=== PATIENT | female | born 2005 | race Hispanic/Latino ===

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

== ENCOUNTER 2025-04-06 08:06 | Emergency (ER) | payer SELFPAY ==
--- OUTSIDE RECORDS SUMMARY | 2025-04-06 08:14 | XMS REPORT | Continuity of Care Document ---
Author Name Unknown Address [address] [facility] [address] [place] [address] [facility] Address [address] [facility] [address] [place] [address] Care Team Providers Care Museum Technician Name Role Phone Cinthia Castaneda PA-C Primary Care Physician + Cindy Bourne NP Attending Clinician + [phone] CINDY BOURNE Attending Clinician Unavaila ble Lab, Ang - Db Attending Clinician Unavailable GREGORY GOODMAN Attending Clinician Unavailable Maggie Denise Attending Clinician [phone] Unknown, Attending Attending Clinician Unavailab MAGGIE Dai Attending Clinician Unavailable Doctor Unassigned, Colver Attending Clinician U CINTHIA Malik Attending Clinician Unavailab Rita Fink RN Attending Clinician UnavailPAULA Edgar Attending Clinician Paula Charlton Attending Clinician [phone] Gregory Goodman MD Attending Clinician [phone] Cinthia Castaneda PA-C Attending Clinician [phone] Only, Ang Db Test Attending Clinician UnavailMarguerite Matthew PA-C Attending Clinician [phone] MARGUERITE PHILLIPS Attending Clinician Unavailable Sonal Wilkerson Attending Clinician [phone] SONAL TANG Attending Clinician Unavailanita Jacobs RN, Madeleine Dodge Attending Clinician Unavailab alyssa Scott MD, Ashley Attending Clinician [phone] ASHLEY SCOTT Attending Clinician Unavailable Nurse, [facility] Attending Clinician Unavailable Nurse, Terry Sorenson Attending Clinician Unavailable Kowalski PRE PRESS PROOFER, Lisa Attending Clinician + [phone] Pob, Ad[facility] Lab Main Attending Clinician Unavailanita tarango Lab, Terry Sorenson Attending Clinician Unavailable Fred HUANG, Enio Attending Clinician [phone] Provider, [facility] Attending Clinician Un available Pily Smith Attending Clinician [phone] PILY LEON Attending Clinician Unavailable Lab, Adc Fam Pob I Attending Clinician Unavailab alyssa DAVIS, Erika Attending Clinician [phone] ERIKA SEAY Attending Clinician Unavailable ANETA PEREZ Attending Clinician Unavail able ENIO ROPER Attending Clinician Unavailable Aneta Perez MD Attending Clinician [phone] Payers Payer Name Policy Type Policy Number Effective Date Expirati on Date Source [facility] [id number] 2017 00:00:00 Problems Condition Name Condition Details Condition Category Status Onset Date Resolution Date Last Treatment Date Treating Clinician Comments Source BMI 26.0-26.9, adult BMI 26.0-26.9, adult Disease Active 5-02 00:00: 00 [facility] Vaginal discharge Vaginal discharge Disease Active 2-10 00:00: 00 [facility] Well woman exam Well woman exam Disease Active 6-08 00:00: 00 [facility] Allergies, Adverse Reactions, Alerts Allergy Name Allergy Type Status Severity Reaction(s) Onset Date Inactive Date Treating Clinician Comments Source LATEX DRUG INGREDI Active Hives 2018-07 00:00: 00 [facility] Latex Propensi ty to adverse reaction s Active Hives 2018-07 00:00: 00 [facility] SULFAMET HOXAZOLE DRUG INGREDI Active Swelling 220 00:00: 00 [facility] TRIMETHO PRIM DRUG INGREDI Active Swelling 2-20 00:00: 00 [facility] Sulfamet hoxazole Propensi ty to adverse reaction s Active Swelling 08-24 00:00: 00 [facility] Trimetho prim Propensi ty to adverse reaction s Active Swelling 08-24 00:00: 00 [facility] Social History Social Habit Start Date Stop Date Quantity Comments Source History SDOH Alcohol Comment [place] [facility] SARS-CoV[facility]2 (event) 2022-10-24 00:00:00 2022-11-03 09:03:00 Not sure [facility] History of Social function 2022-11-03 00:00:00 2022-11-03 00:00:00 [facility] Alcohol intake 2022-08-14 00:00:00 2022-08-14 00:00:00 Lifetime non-drinker (finding) [facility] Tobacco use and exposure 2022-05-19 00:00:00 2022-05-19 00:00:00 Smokeless tobacco non-user [facility] History SDOH Alcohol Frequency 2020-03-13 00:00:00 2020-03-13 00:00:00 1 [facility] History SDOH Alcohol Std Drinks 2020-03-13 00:00:00 2020-03-13 00:00:00 99 [facility] History SDOH Alcohol Binge 2020-03-13 00:00:00 2020-03-13 00:00:00 1 [facility] Sex Assigned At 2003 00:00:00 2003 00:00:00 [facility] Smoking Status Start Date Stop Date Source Never smoked tobacco [facility] Medications Ordered Medication Name Filled Medication Name Start Date Stop Date Current Medication? Ordering Clinician Indication Dosage Frequency Signature (SIG) Comments Components Source metroNIDAZO LE 500 mg tablet 03-29 00:00: 00 04-06 04:59 :00 No [id number] 500mg Take 1 tablet by mouth every 12 (twelve) hours for [address] [facility] metroNIDAZO LE (NUVESSA) 1.3 % (65 mg/5 gram) Gel 03-25 00:00: 00 03-26 04:59 :00 No [id number] 65mg Insert 65 mg into vagina once now for [address] [facility] ketoconazol e 2 % cream 09-25 00:00: 00 Yes [id number] Apply to area(s) daily. [facility] cephALEXin (KEFLEX) 500 mg capsule 09-25 00:00: 00 10-06 04:59 :00 No [id number] 500mg Take 1 capsule by mouth 4 (four) times daily for [address] [facility] fluconazole (DIFLUCAN) 150 mg tablet 09-25 00:00: 00 09-30 04:59 :00 No [id number] 150mg Take 1 tablet by mouth every 72 (seventy-t wo) hours for [address] [facility] metroNIDAZO LE 500 mg tablet 08-20 00:00: 00 08-28 05:59 :00 No [id number] 500mg Take 1 tablet by mouth every 12 (twelve) hours for [address] [facility] terconazole 80 mg vaginal suppository 08-20 00:00: 00 08-24 05:59 :00 No [id number] 80mg Insert 1 Suppositor y into vagina at bedtime for [address] [facility] ibuprofen (ADVIL ORAL) 08-14 09:20: 09 Yes Take by mouth. [facility] calcium carbonate-v itamin D3 1,000 mg(2,500 mg)-800 unit Tab 08-14 09:20: 09 Yes Take by mouth. [facility] metroNIDAZO LE 500 mg tablet 08-14 00:00: 00 08-22 05:59 :00 No [id number] 500mg Take 1 tablet by mouth every 12 (twelve) hours for [address] [facility] terconazole 80 mg vaginal suppository 2021-07 00:00: 00 07-05 05:59 :00 No [id number] 80mg Insert 1 Suppositor y into vagina at bedtime for [address] [facility] metroNIDAZO LE 500 mg tablet 2021-07 00:00: 00 07-08 05:59 :00 No [id number] 500mg Take 1 tablet by mouth every 12 (twelve) hours for [address] [facility] ibuprofen (ADVIL ORAL) 2021-07 20:22: 49 Yes Take by mouth. [facility] calcium carbonate-v itamin D3 1,000 mg(2,500 mg)-800 unit Tab 2021-07 20:22: 49 Yes Take by mouth. [facility] bacitracin- polymyxin B 500-10,000 unit/gram topical ointment 2021-07 00:00: 00 06-03 05:59 :00 No [id number] Apply to area(s) 2 (two) times daily for [address] [facility] calcium carbonate-v itamin D3 1,000 mg(2,500 mg)-800 unit Tab 10-30 15:24: 20 Yes Take by mouth. [facility] loratadine (ALLERGY RELIEF, LORATADINE, ) 10 mg dissolvable tablet 10-03 00:00: 00 Yes [id number] 10mg Take 1 tablet by mouth daily. [facility] mometasone 50 mcg/actuati on nasal spray 10-03 00:00: 00 Yes [id number] USE 2 sprays ea nostril BID [facility] FLUoxetine 20 mg tablet 02-28 00:00: 00 Yes [id number] 20mg Take 1 tablet by mouth daily. [facility] FLUoxetine 20 mg tablet 01-27 00:00: 00 02-28 00:00 :00 No [id number] 20mg Take 1 tablet by mouth daily. [facility] azithromyci n 500 mg tablet 6-09 00:00: 00 02-28 00:00 :00 No TAKE 2 TABLETS BY MOUTH 1 TIME NOW FOR [address] [facility] cyproheptad ine 4 mg tablet 6-02 00:00: 00 02-28 00:00 :00 No [id number] Take 1 po bid for increased appetite [facility] mupirocin 2 % ointment 5-16 00:00: 00 02-28 00:00 :00 No [id number] Apply to area(s) 3 (three) times daily. [facility] ibuprofen (ADVIL ORAL) 04-02 09:55: 32 Yes Take by mouth. [facility] ferrous sulfate (IRON, FERROUS SULFATE,) 325 mg (65 mg iron) tablet 2018-07 00:00: 00 Yes [id number] 325mg Take 1 tablet by mouth 3 (three) times daily with meals. [facility] fluticasone 50 mcg/actuati on nasal spray 11-11 00:00: 00 02-28 00:00 :00 No [id number] 2{spray } Use 2 Sprays in each nostril daily. [facility] Immunizations Ordered Immunization Name Filled Immunization Name Date Status Comments Source TDAP (ADACEL) VACCINE 2023-03-29 00:00:00 Completed [facility] DTAP 2023-03-29 00:00:00 Completed [facility] HIB 4 Dose Schedule 2023-03-29 00:00:00 Completed [facility] HEPATITIS A 2023-03-29 00:00:00 Completed [facility] Hep B, Adol or Pedi Dosage 2023-03-29 00:00:00 Completed [facility] HPV 2023-03-29 00:00:00 Completed [facility] Influenza Virus Vaccine 2023-03-29 00:00:00 Completed [facility] Meningococcal Polysaccharide (groups A, C, Y and W-135) conjugate vaccine (MCV4P) 2023-03-29 00:00:00 Completed [facility] MMR 2023-03-29 00:00:00 Completed [facility] Polio (IPV/OPV) 2023-03-29 00:00:00 Completed [facility] Varicella (varivax)(chicken pox) 2023-03-29 00:00:00 Completed [facility] Pneumococcal 7 Conjugate, PCV7 (Prevnar7) 2023-03-29 00:00:00 Completed [facility] Influenza Virus Vaccine Quad .5 mL IM 6+ MO (FLUZONE/FLULAVAL/FLU ARIX) 2023-03-29 00:00:00 Completed [facility] Meningococcal B, OMV 2023-03-29 00:00:00 Completed [facility] DTaP, Unspecified Formulation 2023-03-29 00:00:00 Completed [facility] Flu Trivalent 2023-03-29 00:00:00 Completed [facility] Influenza Virus Vaccine - Whole 2023-03-29 00:00:00 Completed [facility] IPV 2023-03-29 00:00:00 Completed [facility] TDAP (ADACEL) VACCINE 2023-03-26 00:00:00 Completed [facility] DTAP 2023-03-26 00:00:00 Completed [facility] HIB 4 Dose Schedule 2023-03-26 00:00:00 Completed [facility] HEPATITIS A 2023-03-26 00:00:00 Completed [facility] Hep B, Adol or Pedi Dosage 2023-03-26 00:00:00 Completed [facility] HPV 2023-03-26 00:00:00 Completed [facility] Influenza Virus Vaccine 2023-03-26 00:00:00 Completed [facility] Meningococcal Polysaccharide (groups A, C, Y and W-135) conjugate vaccine (MCV4P) 2023-03-26 00:00:00 Completed [facility] MMR 2023-03-26 00:00:00 Completed [facility] Polio (IPV/OPV) 2023-03-26 00:00:00 Completed [facility] Varicella (varivax)(chicken pox) 2023-03-26 00:00:00 Completed [facility] Pneumococcal 7 Conjugate, PCV7 (Prevnar7) 2023-03-26 00:00:00 Completed [facility] Influenza Virus Vaccine Quad .5 mL IM 6+ MO (FLUZONE/FLULAVAL/FLU ARIX) 2023-03-26 00:00:00 Completed [facility] Meningococcal B, OMV 2023-03-26 00:00:00 Completed [facility] DTaP, Unspecified Formulation 2023-03-26 00:00:00 Completed [facility] Flu Trivalent 2023-03-26 00:00:00 Completed [facility] Influenza Virus Vaccine - Whole 2023-03-26 00:00:00 Completed [facility] IPV 2023-03-26 00:00:00 Completed [facility] TDAP (ADACEL) VACCINE 2023-03-25 09:00:00 Completed [facility] DTAP 2023-03-25 09:00:00 Completed [facility] HIB 4 Dose Schedule 2023-03-25 09:00:00 Completed [facility] HEPATITIS A 2023-03-25 09:00:00 Completed [facility] Hep B, Adol or Pedi Dosage 2023-03-25 09:00:00 Completed [facility] HPV 2023-03-25 09:00:00 Completed [facility] Influenza Virus Vaccine 2023-03-25 09:00:00 Completed [facility] Meningococcal Polysaccharide (groups A, C, Y and W-135) conjugate vaccine (MCV4P) 2023-03-25 09:00:00 Completed [facility] MMR 2023-03-25 09:00:00 Completed [facility] Polio (IPV/OPV) 2023-03-25 09:00:00 Completed [facility] Varicella (varivax)(chicken pox) 2023-03-25 09:00:00 Completed [facility] Pneumococcal 7 Conjugate, PCV7 (Prevnar7) 2023-03-25 09:00:00 Completed [facility] Influenza Virus Vaccine Quad .5 mL IM 6+ MO (FLUZONE/FLULAVAL/FLU ARIX) 2023-03-25 09:00:00 Completed [facility] Meningococcal B, OMV 2023-03-25 09:00:00 Completed [facility] DTaP, Unspecified Formulation 2023-03-25 09:00:00 Completed [facility] Flu Trivalent 2023-03-25 09:00:00 Completed [facility] Influenza Virus Vaccine - Whole 2023-03-25 09:00:00 Completed [facility] IPV 2023-03-25 09:00:00 Completed [facility] TDAP (ADACEL) VACCINE 2022-09-17 00:00:00 Completed [facility] DTAP 2022-09-17 00:00:00 Completed [facility] HIB 4 Dose Schedule 2022-09-17 00:00:00 Completed [facility] HEPATITIS A 2022-09-17 00:00:00 Completed [facility] Hep B, Adol or Pedi Dosage 2022-09-17 00:00:00 Completed [facility] HPV 2022-09-17 00:00:00 Completed [facility] Influenza Virus Vaccine 2022-09-17 00:00:00 Completed [facility] Meningococcal Polysaccharide (groups A, C, Y and W-135) conjugate vaccine (MCV4P) 2022-09-17 00:00:00 Completed [facility] MMR 2022-09-17 00:00:00 Completed [facility] Polio (IPV/OPV) 2022-09-17 00:00:00 Completed [facility] Varicella (varivax)(chicken pox) 2022-09-17 00:00:00 Completed [facility] Pneumococcal 7 Conjugate, PCV7 (Prevnar7) 2022-09-17 00:00:00 Completed [facility] Influenza Virus Vaccine Quad .5 mL IM 6+ MO (FLUZONE/FLULAVAL/FLU ARIX) 2022-09-17 00:00:00 Completed [facility] Meningococcal B, OMV 2022-09-17 00:00:00 Completed [facility] DTaP, Unspecified Formulation 2022-09-17 00:00:00 Completed [facility] Flu Trivalent 2022-09-17 00:00:00 Completed [facility] Influenza Virus Vaccine - Whole 2022-09-17 00:00:00 Completed [facility] IPV 2022-09-17 00:00:00 Completed [facility] Meningococcal Polysaccharide (groups A, C, Y and W-135) conjugate vaccine (MCV4P) 2020-02-16 00:00:00 Completed [facility] Meningococcal B, OMV 2020-02-16 00:00:00 Completed [facility] Meningococcal Polysaccharide (groups A, C, Y and W-135) conjugate vaccine (MCV4P) 2020-02-16 00:00:00 Completed [facility] Meningococcal B, OMV 2020-02-16 00:00:00 Completed [facility] Meningococcal Polysaccharide (groups A, C, Y and W-135) conjugate vaccine (MCV4P) 2020-02-16 00:00:00 Completed [facility] Meningococcal B, OMV 2020-02-16 00:00:00 Completed [facility] Meningococcal Polysaccharide (groups A, C, Y and W-135) conjugate vaccine (MCV4P) 2020-02-16 00:00:00 Completed [facility] Meningococcal B, OMV 2020-02-16 00:00:00 Completed [facility] Meningococcal Polysaccharide (groups A, C, Y and W-135) conjugate vaccine (MCV4P) 2020-02-16 00:00:00 Completed [facility] Meningococcal B, OMV 2020-02-16 00:00:00 Completed [facility] Meningococcal Polysaccharide (groups A, C, Y and W-135) conjugate vaccine (MCV4P) 2020-02-16 00:00:00 Completed [facility] Meningococcal B, OMV 2020-02-16 00:00:00 Completed [facility] Meningococcal Polysaccharide (groups A, C, Y and W-135) conjugate vaccine (MCV4P) 2020-02-16 00:00:00 Completed [facility] Meningococcal B, OMV 2020-02-16 00:00:00 Completed [facility] Meningococcal Polysaccharide (groups A, C, Y and W-135) conjugate vaccine (MCV4P) 2020-02-16 00:00:00 Completed [facility] Meningococcal B, OMV 2020-02-16 00:00:00 Completed [facility] Meningococcal Polysaccharide (groups A, C, Y and W-135) conjugate vaccine (MCV4P) 2020-02-16 00:00:00 Completed [facility] Meningococcal B, OMV 2020-02-16 00:00:00 Completed [facility] Meningococcal Polysaccharide (groups A, C, Y and W-135) conjugate vaccine (MCV4P) 2020-02-16 00:00:00 Completed [facility] Meningococcal B, OMV 2020-02-16 00:00:00 Completed [facility] Meningococcal Polysaccharide (groups A, C, Y and W-135) conjugate vaccine (MCV4P) 2020-02-16 00:00:00 Completed [facility] Meningococcal B, OMV 2020-02-16 00:00:00 Completed [facility] Meningococcal Polysaccharide (groups A, C, Y and W-135) conjugate vaccine (MCV4P) 2020-02-16 00:00:00 Completed [facility] Meningococcal B, OMV 2020-02-16 00:00:00 Completed [facility] Meningococcal Polysaccharide (groups A, C, Y and W-135) conjugate vaccine (MCV4P) 2020-02-16 00:00:00 Completed [facility] Meningococcal B, OMV 2020-02-16 00:00:00 Completed [facility] Influenza Virus Vaccine Quad .5 mL IM 6+ MO 2019-05-05 00:00:00 Completed [facility] Influenza Virus Vaccine Quad .5 mL IM 6+ MO 2019-05-05 00:00:00 Completed [facility] Influenza Virus Vaccine Quad .5 mL IM 6+ MO 2019-05-05 00:00:00 Completed [facility] Influenza Virus Vaccine Quad .5 mL IM 6+ MO 2019-05-05 00:00:00 Completed [facility] Influenza Virus Vaccine Quad .5 mL IM 6+ MO 2019-05-05 00:00:00 Completed [facility] Influenza Virus Vaccine Quad .5 mL IM 6+ MO 2019-05-05 00:00:00 Completed [facility] Influenza Virus Vaccine Quad .5 mL IM 6+ MO 2019-05-05 00:00:00 Completed [facility] Influenza Virus Vaccine Quad .5 mL IM 6+ MO 2019-05-05 00:00:00 Completed [facility] Influenza Virus Vaccine Quad .5 mL IM 6+ MO 2019-05-05 00:00:00 Completed [facility] Influenza Virus Vaccine Quad .5 mL IM 6+ MO 2019-05-05 00:00:00 Completed [facility] Influenza Virus Vaccine Quad .5 mL IM 6+ MO 2019-05-05 00:00:00 Completed [facility] Influenza Virus Vaccine Quad .5 mL IM 6+ MO 2019-05-05 00:00:00 Completed [facility] Influenza Virus Vaccine Quad .5 mL IM 6+ MO 2019-05-05 00:00:00 Completed [facility] Influenza Virus Vaccine Quad .5 mL IM 6+ MO 2018-06-14 00:00:00 Completed [facility] Influenza Virus Vaccine Quad .5 mL IM 6+ MO 2018-06-14 00:00:00 Completed [facility] Influenza Virus Vaccine Quad .5 mL IM 6+ MO 2018-06-14 00:00:00 Completed [facility] Influenza Virus Vaccine Quad .5 mL IM 6+ MO 2018-06-14 00:00:00 Completed [facility] Influenza Virus Vaccine Quad .5 mL IM 6+ MO 2018-06-14 00:00:00 Completed [facility] Influenza Virus Vaccine Quad .5 mL IM 6+ MO 2018-06-14 00:00:00 Completed [facility] Influenza Virus Vaccine Quad .5 mL IM 6+ MO 2018-06-14 00:00:00 Completed [facility] Influenza Virus Vaccine Quad .5 mL IM 6+ MO 2018-06-14 00:00:00 Completed [facility] Influenza Virus Vaccine Quad .5 mL IM 6+ MO 2018-06-14 00:00:00 Completed [facility] Influenza Virus Vaccine Quad .5 mL IM 6+ MO 2018-06-14 00:00:00 Completed [facility] Influenza Virus Vaccine Quad .5 mL IM 6+ MO 2018-06-14 00:00:00 Completed [facility] Influenza Virus Vaccine Quad .5 mL IM 6+ MO 2018-06-14 00:00:00 Completed [facility] Influenza Virus Vaccine Quad .5 mL IM 6+ MO 2018-06-14 00:00:00 Completed [facility] Influenza Virus Vaccine - Whole 2017-04-01 00:00:00 Completed [facility] Influenza Virus Vaccine - Whole 2017-04-01 00:00:00 Completed [facility] TDAP (ADACEL) VACCINE 2016-03-06 00:00:00 Completed [facility] Meningococcal Polysaccharide (groups A, C, Y and W-135) conjugate vaccine (MCV4P) 2016-03-06 00:00:00 Completed [facility] TDAP (ADACEL) VACCINE 2016-03-06 00:00:00 Completed [facility] Meningococcal Polysaccharide (groups A, C, Y and W-135) conjugate vaccine (MCV4P) 2016-03-06 00:00:00 Completed [facility] TDAP (ADACEL) VACCINE 2016-03-06 00:00:00 Completed [facility] Meningococcal Polysaccharide (groups A, C, Y and W-135) conjugate vaccine (MCV4P) 2016-03-06 00:00:00 Completed [facility] TDAP (ADACEL) VACCINE 2016-03-06 00:00:00 Completed [facility] Meningococcal Polysaccharide (groups A, C, Y and W-135) conjugate vaccine (MCV4P) 2016-03-06 00:00:00 Completed [facility] TDAP (ADACEL) VACCINE 2016-03-06 00:00:00 [facility] [facility] Meningococcal Polysaccharide (groups A, C, Y and W-135) conjugate vaccine (MCV4P) 2016-03-06 00:00:00 Completed [facility] TDAP (ADACEL) VACCINE 2016-03-06 00:00:00 Completed [facility] Meningococcal Polysaccharide (groups A, C, Y and W-135) conjugate vaccine (MCV4P) 2016-03-06 00:00:00 Completed [facility] TDAP (ADACEL) VACCINE 2016-03-06 00:00:00 Completed [facility] Meningococcal Polysaccharide (groups A, C, Y and W-135) conjugate vaccine (MCV4P) 2016-03-06 00:00:00 Completed [facility] TDAP (ADACEL) VACCINE 2016-03-06 00:00:00 Completed [facility] Meningococcal Polysaccharide (groups A, C, Y and W-135) conjugate vaccine (MCV4P) 2016-03-06 00:00:00 Completed [facility] TDAP (ADACEL) VACCINE 2016-03-06 00:00:00 Completed [facility] Meningococcal Polysaccharide (groups A, C, Y and W-135) conjugate vaccine (MCV4P) 2016-03-06 00:00:00 Completed [facility] TDAP (ADACEL) VACCINE 2016-03-06 00:00:00 Completed [facility] Meningococcal Polysaccharide (groups A, C, Y and W-135) conjugate vaccine (MCV4P) 2016-03-06 00:00:00 Completed [facility] TDAP (ADACEL) VACCINE 2016-03-06 00:00:00 Completed [facility] Meningococcal Polysaccharide (groups A, C, Y and W-135) conjugate vaccine (MCV4P) 2016-03-06 00:00:00 Completed [facility] TDAP (ADACEL) VACCINE 2016-03-06 00:00:00 Completed [facility] Meningococcal Polysaccharide (groups A, C, Y and W-135) conjugate vaccine (MCV4P) 2016-03-06 00:00:00 Completed [facility] TDAP (ADACEL) VACCINE 2016-03-06 00:00:00 Completed [facility] Meningococcal Polysaccharide (groups A, C, Y and W-135) conjugate vaccine (MCV4P) 2016-03-06 00:00:00 Completed [facility] HPV 2015-01-22 00:00:00 Completed [facility] HPV 2015-01-22 00:00:00 Completed [facility] HPV 2015-01-22 00:00:00 Completed [facility] HPV 2015-01-22 00:00:00 Completed [facility] HPV 2015-01-22 00:00:00 Completed [facility] HPV 2015-01-22 00:00:00 Completed [facility] HPV 2015-01-22 00:00:00 Completed [facility] HPV 2015-01-22 00:00:00 Completed [facility] HPV 2015-01-22 00:00:00 Completed [facility] HPV 2015-01-22 00:00:00 Completed [facility] HPV 2015-01-22 00:00:00 Completed [facility] HPV 2015-01-22 00:00:00 Completed [facility] HPV 2015-01-22 00:00:00 Completed [facility] HPV 2014-07-06 00:00:00 Completed [facility] Influenza Virus Vaccine 2014-07-06 00:00:00 Completed [facility] HPV 2014-07-06 00:00:00 Completed [facility] Influenza Virus Vaccine 2014-07-06 00:00:00 Completed [facility] HPV 2014-07-06 00:00:00 Completed [facility] Influenza Virus Vaccine 2014-07-06 00:00:00 Completed [facility] HPV 2014-07-06 00:00:00 Completed [facility] Influenza Virus Vaccine 2014-07-06 00:00:00 Completed [facility] HPV 2014-07-06 00:00:00 Completed [facility] Influenza Virus Vaccine 2014-07-06 00:00:00 Completed [facility] HPV 2014-07-06 00:00:00 Completed [facility] Influenza Virus Vaccine 2014-07-06 00:00:00 Completed [facility] HPV 2014-07-06 00:00:00 Completed [facility] Influenza Virus Vaccine 2014-07-06 00:00:00 Completed [facility] HPV 2014-07-06 00:00:00 Completed [facility] Influenza Virus Vaccine 2014-07-06 00:00:00 Completed [facility] HPV 2014-07-06 00:00:00 Completed [facility] Influenza Virus Vaccine 2014-07-06 00:00:00 Completed [facility] HPV 2014-07-06 00:00:00 Completed [facility] Influenza Virus Vaccine 2014-07-06 00:00:00 Completed [facility] HPV 2014-07-06 00:00:00 Completed [facility] Influenza Virus Vaccine 2014-07-06 00:00:00 Completed [facility] HPV 2014-07-06 00:00:00 Completed [facility] Influenza Virus Vaccine 2014-07-06 00:00:00 Completed [facility] Influenza Virus Vaccine - Whole 2014-07-06 00:00:00 Completed [facility] HPV 2014-07-06 00:00:00 Completed [facility] Influenza Virus Vaccine 2014-07-06 00:00:00 Completed [facility] Influenza Virus Vaccine - Whole 2014-07-06 00:00:00 Completed [facility] HPV 2014-02-27 00:00:00 Completed [facility] HPV 2014-02-27 00:00:00 Completed [facility] HPV 2014-02-27 00:00:00 Completed [facility] HPV 2014-02-27 00:00:00 Completed [facility] HPV 2014-02-27 00:00:00 Completed [facility] HPV 2014-02-27 00:00:00 Completed [facility] HPV 2014-02-27 00:00:00 Completed [facility] HPV 2014-02-27 00:00:00 Completed [facility] HPV 2014-02-27 00:00:00 Completed [facility] HPV 2014-02-27 00:00:00 Completed [facility] HPV 2014-02-27 00:00:00 Completed [facility] HPV 2014-02-27 00:00:00 Completed [facility] HPV 2014-02-27 00:00:00 Completed [facility] Influenza Virus Vaccine 2011-05-25 00:00:00 Completed [facility] Influenza Virus Vaccine 2011-05-25 00:00:00 Completed [facility] Influenza Virus Vaccine 2011-05-25 00:00:00 Completed [facility] Influenza Virus Vaccine 2011-05-25 00:00:00 Completed [facility] Influenza Virus Vaccine 2011-05-25 00:00:00 Completed [facility] Influenza Virus Vaccine 2011-05-25 00:00:00 Completed [facility] Influenza Virus Vaccine 2011-05-25 00:00:00 Completed [facility] Influenza Virus Vaccine 2011-05-25 00:00:00 Completed [facility] Influenza Virus Vaccine 2011-05-25 00:00:00 Completed [facility] Influenza Virus Vaccine 2011-05-25 00:00:00 Completed [facility] Influenza Virus Vaccine 2011-05-25 00:00:00 Completed [facility] Influenza Virus Vaccine 2011-05-25 00:00:00 Completed [facility] Flu Trivalent 2011-05-25 00:00:00 Completed [facility] Influenza Virus Vaccine 2011-05-25 00:00:00 Completed [facility] Flu Trivalent 2011-05-25 00:00:00 Completed [facility] Influenza Virus Vaccine 2010-05-06 00:00:00 Completed [facility] Influenza Virus Vaccine 2010-05-06 00:00:00 Completed [facility] Influenza Virus Vaccine 2010-05-06 00:00:00 Completed [facility] Influenza Virus Vaccine 2010-05-06 00:00:00 Completed [facility] Influenza Virus Vaccine 2010-05-06 00:00:00 Completed [facility] Influenza Virus Vaccine 2010-05-06 00:00:00 Completed [facility] Influenza Virus Vaccine 2010-05-06 00:00:00 Completed [facility] Influenza Virus Vaccine 2010-05-06 00:00:00 Completed [facility] Influenza Virus Vaccine 2010-05-06 00:00:00 Completed [facility] Influenza Virus Vaccine 2010-05-06 00:00:00 Completed [facility] Influenza Virus Vaccine 2010-05-06 00:00:00 Completed [facility] Influenza Virus Vaccine 2010-05-06 00:00:00 Completed [facility] Flu Trivalent 2010-05-06 00:00:00 Completed [facility] Influenza Virus Vaccine 2010-05-06 00:00:00 Completed [facility] Flu Trivalent 2010-05-06 00:00:00 Completed [facility] DTAP 2007-10-12 00:00:00 Completed [facility] HEPATITIS A 2007-10-12 00:00:00 Completed [facility] MMR 2007-10-12 00:00:00 Completed [facility] Polio (IPV/OPV) 2007-10-12 00:00:00 Completed [facility] Varicella (varivax)(chicken pox) 2007-10-12 00:00:00 Completed [facility] DTAP 2007-10-12 00:00:00 Completed [facility] HEPATITIS A 2007-10-12 00:00:00 Completed [facility] MMR 2007-10-12 00:00:00 Completed [facility] Polio (IPV/OPV) 2007-10-12 00:00:00 Completed [facility] Varicella (varivax)(chicken pox) 2007-10-12 00:00:00 Completed [facility] DTAP 2007-10-12 00:00:00 Completed [facility] HEPATITIS A 2007-10-12 00:00:00 Completed [facility] MMR 2007-10-12 00:00:00 Completed [facility] Polio (IPV/OPV) 2007-10-12 00:00:00 Completed [facility] Varicella (varivax)(chicken pox) 2007-10-12 00:00:00 Completed [facility] DTAP 2007-10-12 00:00:00 Completed [facility] HEPATITIS A 2007-10-12 00:00:00 Completed [facility] MMR 2007-10-12 00:00:00 Completed [facility] Polio (IPV/OPV) 2007-10-12 00:00:00 Completed [facility] Varicella (varivax)(chicken pox) 2007-10-12 00:00:00 Completed [facility] DTAP 2007-10-12 00:00:00 Completed [facility] HEPATITIS A 2007-10-12 00:00:00 Completed [facility] MMR 2007-10-12 00:00:00 Completed [facility] Polio (IPV/OPV) 2007-10-12 00:00:00 Completed [facility] Varicella (varivax)(chicken pox) 2007-10-12 00:00:00 Completed [facility] DTAP 2007-10-12 00:00:00 Completed [facility] HEPATITIS A 2007-10-12 00:00:00 Completed [facility] MMR 2007-10-12 00:00:00 Completed [facility] Polio (IPV/OPV) 2007-10-12 00:00:00 Completed [facility] Varicella (varivax)(chicken pox) 2007-10-12 00:00:00 Completed [facility] DTAP 2007-10-12 00:00:00 Completed [facility] HEPATITIS A 2007-10-12 00:00:00 Completed [facility] MMR 2007-10-12 00:00:00 Completed [facility] Polio (IPV/OPV) 2007-10-12 00:00:00 Completed [facility] Varicella (varivax)(chicken pox) 2007-10-12 00:00:00 Completed [facility] DTAP 2007-10-12 00:00:00 Completed [facility] HEPATITIS A 2007-10-12 00:00:00 Completed [facility] MMR 2007-10-12 00:00:00 Completed [facility] Polio (IPV/OPV) 2007-10-12 00:00:00 Completed [facility] Varicella (varivax)(chicken pox) 2007-10-12 00:00:00 Completed [facility] DTAP 2007-10-12 00:00:00 Completed [facility] HEPATITIS A 2007-10-12 00:00:00 Completed [facility] MMR 2007-10-12 00:00:00 Completed [facility] Polio (IPV/OPV) 2007-10-12 00:00:00 Completed [facility] Varicella (varivax)(chicken pox) 2007-10-12 00:00:00 Completed [facility] DTAP 2007-10-12 00:00:00 Completed [facility] HEPATITIS A 2007-10-12 00:00:00 Completed [facility] MMR 2007-10-12 00:00:00 Completed [facility] Polio (IPV/OPV) 2007-10-12 00:00:00 Completed [facility] Varicella (varivax)(chicken pox) 2007-10-12 00:00:00 Completed [facility] DTAP 2007-10-12 00:00:00 Completed [facility] HEPATITIS A 2007-10-12 00:00:00 Completed [facility] MMR 2007-10-12 00:00:00 Completed [facility] Polio (IPV/OPV) 2007-10-12 00:00:00 Completed [facility] Varicella (varivax)(chicken pox) 2007-10-12 00:00:00 Completed [facility] DTAP 2007-10-12 00:00:00 Completed [facility] HEPATITIS A 2007-10-12 00:00:00 Completed [facility] MMR 2007-10-12 00:00:00 Completed [facility] Polio (IPV/OPV) 2007-10-12 00:00:00 Completed [facility] Varicella (varivax)(chicken pox) 2007-10-12 00:00:00 Completed [facility] DTaP, Unspecified Formulation 2007-10-12 00:00:00 Completed [facility] IPV 2007-10-12 00:00:00 Completed [facility] DTAP 2007-10-12 00:00:00 Completed [facility] HEPATITIS A 2007-10-12 00:00:00 Completed [facility] MMR 2007-10-12 00:00:00 Completed [facility] Polio (IPV/OPV) 2007-10-12 00:00:00 Completed [facility] Varicella (varivax)(chicken pox) 2007-10-12 00:00:00 Completed [facility] DTaP, Unspecified Formulation 2007-10-12 00:00:00 Completed [facility] IPV 2007-10-12 00:00:00 Completed [facility] HEPATITIS A 2007-03-21 00:00:00 Completed [facility] HEPATITIS A 2007-03-21 00:00:00 Completed [facility] HEPATITIS A 2007-03-21 00:00:00 Completed [facility] HEPATITIS A 2007-03-21 00:00:00 Completed [facility] HEPATITIS A 2007-03-21 00:00:00 Completed [facility] HEPATITIS A 2007-03-21 00:00:00 Completed [facility] HEPATITIS A 2007-03-21 00:00:00 Completed [facility] HEPATITIS A 2007-03-21 00:00:00 Completed [facility] HEPATITIS A 2007-03-21 00:00:00 Completed [facility] HEPATITIS A 2007-03-21 00:00:00 Completed [facility] HEPATITIS A 2007-03-21 00:00:00 Completed [facility] HEPATITIS A 2007-03-21 00:00:00 Completed [facility] HEPATITIS A 2007-03-21 00:00:00 Completed [facility] DTAP 2005-09-28 00:00:00 Completed [facility] HIB 4 Dose Schedule 2005-09-28 00:00:00 Completed [facility] DTAP 2005-09-28 00:00:00 Completed [facility] HIB 4 Dose Schedule 2005-09-28 00:00:00 Completed [facility] DTAP 2005-09-28 00:00:00 Completed [facility] HIB 4 Dose Schedule 2005-09-28 00:00:00 Completed [facility] DTAP 2005-09-28 00:00:00 Completed [facility] HIB 4 Dose Schedule 2005-09-28 00:00:00 Completed [facility] DTAP 2005-09-28 00:00:00 Completed [facility] HIB 4 Dose Schedule 2005-09-28 00:00:00 Completed [facility] DTAP 2005-09-28 00:00:00 Completed [facility] HIB 4 Dose Schedule 2005-09-28 00:00:00 Completed [facility] DTAP 2005-09-28 00:00:00 Completed [facility] HIB 4 Dose Schedule 2005-09-28 00:00:00 Completed [facility] DTAP 2005-09-28 00:00:00 Completed [facility] HIB 4 Dose Schedule 2005-09-28 00:00:00 Completed [facility] DTAP 2005-09-28 00:00:00 Completed [facility] HIB 4 Dose Schedule 2005-09-28 00:00:00 Completed [facility] DTAP 2005-09-28 00:00:00 Completed [facility] HIB 4 Dose Schedule 2005-09-28 00:00:00 Completed [facility] DTAP 2005-09-28 00:00:00 Completed [facility] HIB 4 Dose Schedule 2005-09-28 00:00:00 Completed [facility] DTAP 2005-09-28 00:00:00 Completed [facility] HIB 4 Dose Schedule 2005-09-28 00:00:00 Completed [facility] DTaP, Unspecified Formulation 2005-09-28 00:00:00 Completed [facility] DTAP 2005-09-28 00:00:00 Completed [facility] HIB 4 Dose Schedule 2005-09-28 00:00:00 Completed [facility] DTaP, Unspecified Formulation 2005-09-28 00:00:00 Completed [facility] Pneumococcal 7 Conjugate, PCV7 (Prevnar7) 2005-03-03 00:00:00 Completed [facility] Pneumococcal 7 Conjugate, PCV7 (Prevnar7) 2005-03-03 00:00:00 Completed [facility] Pneumococcal 7 Conjugate, PCV7 (Prevnar7) 2005-03-03 00:00:00 Completed [facility] Pneumococcal 7 Conjugate, PCV7 (Prevnar7) 2005-03-03 00:00:00 Completed [facility] Pneumococcal 7 Conjugate, PCV7 (Prevnar7) 2005-03-03 00:00:00 Completed [facility] Pneumococcal 7 Conjugate, PCV7 (Prevnar7) 2005-03-03 00:00:00 Completed [facility] Pneumococcal 7 Conjugate, PCV7 (Prevnar7) 2005-03-03 00:00:00 Completed [facility] Pneumococcal 7 Conjugate, PCV7 (Prevnar7) 2005-03-03 00:00:00 Completed [facility] Pneumococcal 7 Conjugate, PCV7 (Prevnar7) 2005-03-03 00:00:00 Completed [facility] Pneumococcal 7 Conjugate, PCV7 (Prevnar7) 2005-03-03 00:00:00 Completed [facility] Pneumococcal 7 Conjugate, PCV7 (Prevnar7) 2005-03-03 00:00:00 Completed [facility] Pneumococcal 7 Conjugate, PCV7 (Prevnar7) 2005-03-03 00:00:00 Completed [facility] Pneumococcal 7 Conjugate, PCV7 (Prevnar7) 2005-03-03 00:00:00 Completed [facility] MMR 2005-02-18 00:00:00 Completed [facility] Varicella (varivax)(chicken pox) 2005-02-18 00:00:00 Completed [facility] MMR 2005-02-18 00:00:00 Completed [facility] Varicella (varivax)(chicken pox) 2005-02-18 00:00:00 Completed [facility] MMR 2005-02-18 00:00:00 Completed [facility] Varicella (varivax)(chicken pox) 2005-02-18 00:00:00 Completed [facility] MMR 2005-02-18 00:00:00 Completed [facility] Varicella (varivax)(chicken pox) 2005-02-18 00:00:00 Completed [facility] MMR 2005-02-18 00:00:00 Completed [facility] Varicella (varivax)(chicken pox) 2005-02-18 00:00:00 Completed [facility] 2005-02-18 00:00:00 Completed [facility] Varicella (varivax)(chicken pox) 2005-02-18 00:00:00 Completed [facility] 2005-02-18 00:00:00 Completed [facility] Varicella (varivax)(chicken pox) 2005-02-18 00:00:00 Completed [facility] 2005-02-18 00:00:00 Completed [facility] Varicella (varivax)(chicken pox) 2005-02-18 00:00:00 Completed [facility] 2005-02-18 00:00:00 Completed [facility] Varicella (varivax)(chicken pox) 2005-02-18 00:00:00 Completed [facility] 2005-02-18 00:00:00 Completed [facility] Varicella (varivax)(chicken pox) 2005-02-18 00:00:00 Completed [facility] 2005-02-18 00:00:00 Completed [facility] Varicella (varivax)(chicken pox) 2005-02-18 00:00:00 Completed [facility] 2005-02-18 00:00:00 Completed [facility] Varicella (varivax)(chicken pox) 2005-02-18 00:00:00 Completed [facility] 2005-02-18 00:00:00 Completed [facility] Varicella (varivax)(chicken pox) 2005-02-18 00:00:00 Completed [facility] [facility] DTAP 2005-02-05 00:00:00 Completed [facility] HIB 4 Dose Schedule 2005-02-05 00:00:00 Completed [facility] Polio (IPV/OPV) 2005-02-05 00:00:00 Completed [facility] DTAP 2005-02-05 00:00:00 Completed [facility] HIB 4 Dose Schedule 2005-02-05 00:00:00 Completed [facility] Polio (IPV/OPV) 2005-02-05 00:00:00 Completed [facility] DTAP 2005-02-05 00:00:00 Completed [facility] HIB 4 Dose Schedule 2005-02-05 00:00:00 Completed [facility] Polio (IPV/OPV) 2005-02-05 00:00:00 Completed [facility] DTAP 2005-02-05 00:00:00 Completed [facility] HIB 4 Dose Schedule 2005-02-05 00:00:00 Completed [facility] Polio (IPV/OPV) 2005-02-05 00:00:00 Completed [facility] DTAP 2005-02-05 00:00:00 Completed [facility] HIB 4 Dose Schedule 2005-02-05 00:00:00 Completed [facility] Polio (IPV/OPV) 2005-02-05 00:00:00 Completed [facility] DTAP 2005-02-05 00:00:00 Completed [facility] HIB 4 Dose Schedule 2005-02-05 00:00:00 Completed [facility] Polio (IPV/OPV) 2005-02-05 00:00:00 Completed [facility] DTAP 2005-02-05 00:00:00 Completed [facility] HIB 4 Dose Schedule 2005-02-05 00:00:00 Completed [facility] Polio (IPV/OPV) 2005-02-05 00:00:00 Completed [facility] DTAP 2005-02-05 00:00:00 Completed [facility] HIB 4 Dose Schedule 2005-02-05 00:00:00 Completed [facility] Polio (IPV/OPV) 2005-02-05 00:00:00 Completed [facility] DTAP 2005-02-05 00:00:00 Completed [facility] HIB 4 Dose Schedule 2005-02-05 00:00:00 Completed [facility] Polio (IPV/OPV) 2005-02-05 00:00:00 Completed [facility] DTAP 2005-02-05 00:00:00 Completed [facility] HIB 4 Dose Schedule 2005-02-05 00:00:00 Completed [facility] Polio (IPV/OPV) 2005-02-05 00:00:00 Completed [facility] DTAP 2005-02-05 00:00:00 Completed [facility] HIB 4 Dose Schedule 2005-02-05 00:00:00 Completed [facility] Polio (IPV/OPV) 2005-02-05 00:00:00 Completed [facility] DTAP 2005-02-05 00:00:00 Completed [facility] HIB 4 Dose Schedule 2005-02-05 00:00:00 Completed [facility] Polio (IPV/OPV) 2005-02-05 00:00:00 Completed [facility] DTaP, Unspecified Formulation 2005-02-05 00:00:00 Completed [facility] IPV 2005-02-05 00:00:00 Completed [facility] DTAP 2005-02-05 00:00:00 Completed [facility] HIB 4 Dose Schedule 2005-02-05 00:00:00 Completed [facility] Polio (IPV/OPV) 2005-02-05 00:00:00 Completed [facility] DTaP, Unspecified Formulation 2005-02-05 00:00:00 Completed [facility] IPV 2005-02-05 00:00:00 Completed [facility] Hep B, Adol or Pedi Dosage 2004-10-09 00:00:00 Completed [facility] Pneumococcal 7 Conjugate, PCV7 (Prevnar7) 2004-10-09 00:00:00 Completed [facility] Hep B, Adol or Pedi Dosage 2004-10-09 00:00:00 Completed [facility] Pneumococcal 7 Conjugate, PCV7 (Prevnar7) 2004-10-09 00:00:00 Completed [facility] Hep B, Adol or Pedi Dosage 2004-10-09 00:00:00 Completed [facility] Pneumococcal 7 Conjugate, PCV7 (Prevnar7) 2004-10-09 00:00:00 Completed [facility] Hep B, Adol or Pedi Dosage 2004-10-09 00:00:00 Completed [facility] Pneumococcal 7 Conjugate, PCV7 (Prevnar7) 2004-10-09 00:00:00 Completed [facility] Hep B, Adol or Pedi Dosage 2004-10-09 00:00:00 Completed [facility] Pneumococcal 7 Conjugate, PCV7 (Prevnar7) 2004-10-09 00:00:00 Completed [facility] Hep B, Adol or Pedi Dosage 2004-10-09 00:00:00 Completed [facility] Pneumococcal 7 Conjugate, PCV7 (Prevnar7) 2004-10-09 00:00:00 Completed [facility] Hep B, Adol or Pedi Dosage 2004-10-09 00:00:00 Completed [facility] Pneumococcal 7 Conjugate, PCV7 (Prevnar7) 2004-10-09 00:00:00 Completed [facility] Hep B, Adol or Pedi Dosage 2004-10-09 00:00:00 Completed [facility] Pneumococcal 7 Conjugate, PCV7 (Prevnar7) 2004-10-09 00:00:00 Completed [facility] Hep B, Adol or Pedi Dosage 2004-10-09 00:00:00 Completed [facility] Pneumococcal 7 Conjugate, PCV7 (Prevnar7) 2004-10-09 00:00:00 Completed [facility] Hep B, Adol or Pedi Dosage 2004-10-09 00:00:00 Completed [facility] Pneumococcal 7 Conjugate, PCV7 (Prevnar7) 2004-10-09 00:00:00 Completed [facility] Hep B, Adol or Pedi Dosage 2004-10-09 00:00:00 Completed [facility] Pneumococcal 7 Conjugate, PCV7 (Prevnar7) 2004-10-09 00:00:00 Completed [facility] Hep B, Adol or Pedi Dosage 2004-10-09 00:00:00 Completed [facility] Pneumococcal 7 Conjugate, PCV7 (Prevnar7) 2004-10-09 00:00:00 Completed [facility] Hep B, Adol or Pedi Dosage 2004-10-09 00:00:00 Completed [facility] Pneumococcal 7 Conjugate, PCV7 (Prevnar7) 2004-10-09 00:00:00 Completed [facility] DTAP 2004-09-04 00:00:00 Completed [facility] HIB 4 Dose Schedule 2004-09-04 00:00:00 Completed [facility] Polio (IPV/OPV) 2004-09-04 00:00:00 Completed [facility] DTAP 2004-09-04 00:00:00 Completed [facility] HIB 4 Dose Schedule 2004-09-04 00:00:00 Completed [facility] Polio (IPV/OPV) 2004-09-04 00:00:00 Completed [facility] DTAP 2004-09-04 00:00:00 Completed [facility] HIB 4 Dose Schedule 2004-09-04 00:00:00 Completed [facility] Polio (IPV/OPV) 2004-09-04 00:00:00 Completed [facility] DTAP 2004-09-04 00:00:00 Completed [facility] HIB 4 Dose Schedule 2004-09-04 00:00:00 Completed [facility] Polio (IPV/OPV) 2004-09-04 00:00:00 Completed [facility] DTAP 2004-09-04 00:00:00 Completed [facility] HIB 4 Dose Schedule 2004-09-04 00:00:00 Completed [facility] Polio (IPV/OPV) 2004-09-04 00:00:00 Completed [facility] DTAP 2004-09-04 00:00:00 Completed [facility] HIB 4 Dose Schedule 2004-09-04 00:00:00 Completed [facility] Polio (IPV/OPV) 2004-09-04 00:00:00 Completed [facility] DTAP 2004-09-04 00:00:00 Completed [facility] HIB 4 Dose Schedule 2004-09-04 00:00:00 Completed [facility] Polio (IPV/OPV) 2004-09-04 00:00:00 Completed [facility] DTAP 2004-09-04 00:00:00 Completed [facility] HIB 4 Dose Schedule 2004-09-04 00:00:00 Completed [facility] Polio (IPV/OPV) 2004-09-04 00:00:00 Completed [facility] DTAP 2004-09-04 00:00:00 Completed [facility] HIB 4 Dose Schedule 2004-09-04 00:00:00 Completed [facility] Polio (IPV/OPV) 2004-09-04 00:00:00 Completed [facility] DTAP 2004-09-04 00:00:00 Completed [facility] HIB 4 Dose Schedule 2004-09-04 00:00:00 Completed [facility] Polio (IPV/OPV) 2004-09-04 00:00:00 Completed [facility] DTAP 2004-09-04 00:00:00 Completed [facility] HIB 4 Dose Schedule 2004-09-04 00:00:00 Completed [facility] Polio (IPV/OPV) 2004-09-04 00:00:00 Completed [facility] DTAP 2004-09-04 00:00:00 Completed [facility] HIB 4 Dose Schedule 2004-09-04 00:00:00 Completed [facility] Polio (IPV/OPV) 2004-09-04 00:00:00 Completed [facility] DTaP, Unspecified Formulation 2004-09-04 00:00:00 Completed [facility] IPV 2004-09-04 00:00:00 Completed [facility] DTAP 2004-09-04 00:00:00 Completed [facility] HIB 4 Dose Schedule 2004-09-04 00:00:00 Completed [facility] Polio (IPV/OPV) 2004-09-04 00:00:00 Completed [facility] DTaP, Unspecified Formulation 2004-09-04 00:00:00 Completed [facility] IPV 2004-09-04 00:00:00 Completed [facility] Hep B, Adol or Pedi Dosage 2004-01-10 00:00:00 Completed [facility] Pneumococcal 7 Conjugate, PCV7 (Prevnar7) 2004-01-10 00:00:00 Completed [facility] Hep B, Adol or Pedi Dosage 2004-01-10 00:00:00 Completed [facility] Pneumococcal 7 Conjugate, PCV7 (Prevnar7) 2004-01-10 00:00:00 Completed [facility] Hep B, Adol or Pedi Dosage 2004-01-10 00:00:00 Completed [facility] Pneumococcal 7 Conjugate, PCV7 (Prevnar7) 2004-01-10 00:00:00 Completed [facility] Hep B, Adol or Pedi Dosage 2004-01-10 00:00:00 Completed [facility] Pneumococcal 7 Conjugate, PCV7 (Prevnar7) 2004-01-10 00:00:00 Completed [facility] Hep B, Adol or Pedi Dosage 2004-01-10 00:00:00 Completed [facility] Pneumococcal 7 Conjugate, PCV7 (Prevnar7) 2004-01-10 00:00:00 Completed [facility] Hep B, Adol or Pedi Dosage 2004-01-10 00:00:00 Completed [facility] Pneumococcal 7 Conjugate, PCV7 (Prevnar7) 2004-01-10 00:00:00 Completed [facility] Hep B, Adol or Pedi Dosage 2004-01-10 00:00:00 Completed [facility] Pneumococcal 7 Conjugate, PCV7 (Prevnar7) 2004-01-10 00:00:00 Completed [facility] Hep B, Adol or Pedi Dosage 2004-01-10 00:00:00 Completed [facility] Pneumococcal 7 Conjugate, PCV7 (Prevnar7) 2004-01-10 00:00:00 Completed [facility] Hep B, Adol or Pedi Dosage 2004-01-10 00:00:00 Completed [facility] Pneumococcal 7 Conjugate, PCV7 (Prevnar7) 2004-01-10 00:00:00 Completed [facility] Hep B, Adol or Pedi Dosage 2004-01-10 00:00:00 Completed [facility] Pneumococcal 7 Conjugate, PCV7 (Prevnar7) 2004-01-10 00:00:00 Completed [facility] Hep B, Adol or Pedi Dosage 2004-01-10 00:00:00 Completed [facility] Pneumococcal 7 Conjugate, PCV7 (Prevnar7) 2004-01-10 00:00:00 Completed [facility] Hep B, Adol or Pedi Dosage 2004-01-10 00:00:00 Completed [facility] Pneumococcal 7 Conjugate, PCV7 (Prevnar7) 2004-01-10 00:00:00 Completed [facility] Hep B, Adol or Pedi Dosage 2004-01-10 00:00:00 Completed [facility] Pneumococcal 7 Conjugate, PCV7 (Prevnar7) 2004-01-10 00:00:00 Completed [facility] DTAP 2003 00:00:00 Completed [facility] HIB 4 Dose Schedule 2003 00:00:00 Completed [facility] Polio (IPV/OPV) 2003 00:00:00 Completed [facility] DTAP 2003 00:00:00 Completed [facility] HIB 4 Dose Schedule 2003 00:00:00 Completed [facility] Polio (IPV/OPV) 2003 00:00:00 Completed [facility] DTAP 2003 00:00:00 Completed [facility] HIB 4 Dose Schedule 2003 00:00:00 Completed [facility] Polio (IPV/OPV) 2003 00:00:00 Completed [facility] DTAP 2003 00:00:00 Completed [facility] HIB 4 Dose Schedule 2003 00:00:00 Completed [facility] Polio (IPV/OPV) 2003 00:00:00 Completed [facility] DTAP 2003 00:00:00 Completed [facility] HIB 4 Dose Schedule 2003 00:00:00 Completed [facility] Polio (IPV/OPV) 2003 00:00:00 Completed [facility] DTAP 2003 00:00:00 Completed [facility] HIB 4 Dose Schedule 2003 00:00:00 Completed [facility] Polio (IPV/OPV) 2003 00:00:00 Completed [facility] DTAP 2003 00:00:00 Completed [facility] HIB 4 Dose Schedule 2003 00:00:00 Completed [facility] Polio (IPV/OPV) 2003 00:00:00 Completed [facility] DTAP 2003 00:00:00 Completed [facility] HIB 4 Dose Schedule 2003 00:00:00 Completed [facility] Polio (IPV/OPV) 2003 00:00:00 Completed [facility] DTAP 2003 00:00:00 Completed [facility] HIB 4 Dose Schedule 2003 00:00:00 Completed [facility] Polio (IPV/OPV) 2003 00:00:00 Completed [facility] DTAP 2003 00:00:00 Completed [facility] HIB 4 Dose Schedule 2003 00:00:00 Completed [facility] Polio (IPV/OPV) 2003 00:00:00 Completed [facility] DTAP 2003 00:00:00 Completed [facility] HIB 4 Dose Schedule 2003 00:00:00 Completed [facility] Polio (IPV/OPV) 2003 00:00:00 Completed [facility] DTAP 2003 00:00:00 Completed [facility] HIB 4 Dose Schedule 2003 00:00:00 Completed [facility] Polio (IPV/OPV) 2003 00:00:00 Completed [facility] DTaP, Unspecified Formulation 2003 00:00:00 Completed [facility] IPV 2003 00:00:00 Completed [facility] DTAP 2003 00:00:00 Completed [facility] HIB 4 Dose Schedule 2003 00:00:00 Completed [facility] Polio (IPV/OPV) 2003 00:00:00 Completed [facility] DTaP, Unspecified Formulation 2003 00:00:00 Completed [facility] IPV 2003 00:00:00 Completed [facility] Hep B, Adol or Pedi Dosage 2003 00:00:00 Completed [facility] Hep B, Adol or Pedi Dosage 2003 00:00:00 Completed [facility] Hep B, Adol or Pedi Dosage 2003 00:00:00 Completed [facility] Hep B, Adol or Pedi Dosage 2003 00:00:00 Completed [facility] Hep B, Adol or Pedi Dosage 2003 00:00:00 Completed [facility] Hep B, Adol or Pedi Dosage 2003 00:00:00 Completed [facility] Hep B, Adol or Pedi Dosage 2003 00:00:00 Completed [facility] Hep B, Adol or Pedi Dosage 2003 00:00:00 Completed [facility] Hep B, Adol or Pedi Dosage 2003 00:00:00 Completed [facility] Hep B, Adol or Pedi Dosage 2003 00:00:00 Completed [facility] Hep B, Adol or Pedi Dosage 2003 00:00:00 Completed [facility] Hep B, Adol or Pedi Dosage 2003 00:00:00 Completed [facility] Hep B, Adol or Pedi Dosage 2003 00:00:00 Completed [facility] Hep B, Adol or Pedi Dosage 2003 00:00:00 Completed [facility] Hep B, Adol or Pedi Dosage 2003 00:00:00 Completed [facility] Hep B, Adol or Pedi Dosage 2003 00:00:00 Completed [facility] Hep B, Adol or Pedi Dosage 2003 00:00:00 Completed [facility] Hep B, Adol or Pedi Dosage 2003 00:00:00 Completed [facility] Hep B, Adol or Pedi Dosage 2003 00:00:00 Completed [facility] Hep B, Adol or Pedi Dosage 2003 00:00:00 Completed [facility] Hep B, Adol or Pedi Dosage 2003 00:00:00 Completed [facility] Hep B, Adol or Pedi Dosage 2003 00:00:00 Completed [facility] Hep B, Adol or Pedi Dosage 2003 00:00:00 Completed [facility] Hep B, Adol or Pedi Dosage 2003 00:00:00 Completed [facility] Hep B, Adol or Pedi Dosage 2003 00:00:00 Completed [facility] Hep B, Adol or Pedi Dosage 2003 00:00:00 Completed [facility] Vital Signs Vital Name Observation Time Observation Value Comments S yan Systolic blood pressure 2023-03-25 13:47:00 125 mm[Hg] [facility] Diastolic blood pressure 2023-03-25 13:47:00 82 mm[Hg] [facility] Heart rate 2023-03-25 13:47:00 108 /min [facility] Body temperature 2023-03-25 13:47:00 36.61 Mishel [facility] Respiratory rate 2023-03-25 13:47:00 16 /min [facility] Body height 2023-03-25 13:47:00 160 cm [facility] Body weight 2023-03-25 13:47:00 66.225 kg [facility] BMI 2023-03-25 13:47:00 25.86 kg/m2 [facility] Systolic blood pressure 2022-11-03 14:16:00 123 mm[Hg] [facility] Diastolic blood pressure 2022-11-03 14:16:00 87 mm[Hg] [facility] Heart rate 2022-11-03 14:16:00 105 /min [facility] Respiratory rate 2022-11-03 14:16:00 18 /min [facility] Body height 2022-11-03 14:16:00 160 cm [facility] Body weight 2022-11-03 14:16:00 68.04 kg [facility] BMI 2022-11-03 14:16:00 26.57 kg/m2 [facility] Systolic blood pressure 2022-09-25 20:28:00 128 mm[Hg] [facility] Diastolic blood pressure 2022-09-25 20:28:00 86 mm[Hg] [facility] Heart rate 2022-09-25 20:28:00 106 /min [facility] Body temperature 2022-09-25 20:28:00 36.56 Mishel [facility] Respiratory rate 2022-09-25 20:28:00 16 /min [facility] Body height 2022-09-25 20:28:00 160 cm [facility] Body weight 2022-09-25 20:28:00 68.13 kg [facility] BMI 2022-09-25 20:28:00 26.61 kg/m2 [facility] Body mass index (BMI) [Percentile] Per age and sex 2022-09-25 20:28:00 86.93 % [facility] Oxygen saturation in Arterial blood by Pulse oximetry 2022-09-25 20:28:00 98 /min [facility] Systolic blood pressure 2022-08-14 15:19:00 117 mm[Hg] [facility] Diastolic blood pressure 2022-08-14 15:19:00 81 mm[Hg] [facility] Heart rate 2022-08-14 15:19:00 102 /min [facility] Body temperature 2022-08-14 15:19:00 36.83 Mishel [facility] Body height 2022-08-14 15:19:00 160 cm [facility] Body weight 2022-08-14 15:19:00 65.273 kg [facility] BMI 2022-08-14 15:19:00 25.49 kg/m2 [facility] Body mass index (BMI) [Percentile] Per age and sex 2022-08-14 15:19:00 82.78 % [facility] Systolic blood pressure 2022-06-30 20:45:00 117 mm[Hg] [facility] Diastolic blood pressure 2022-06-30 20:45:00 80 mm[Hg] [facility] Heart rate 2022-06-30 20:45:00 103 /min [facility] Body height 2022-06-30 20:45:00 160 cm [facility] Body weight 2022-06-30 20:45:00 65.499 kg [facility] BMI 2022-06-30 20:45:00 25.58 kg/m2 [facility] Body mass index (BMI) [Percentile] Per age and sex 2022-06-30 20:45:00 83.40 % [facility] Oxygen saturation in Arterial blood by Pulse oximetry 2022-06-30 20:45:00 99 /min [facility] Systolic blood pressure 2022-05-20 02:14:00 117 mm[Hg] [facility] Diastolic blood pressure 2022-05-20 02:14:00 76 mm[Hg] [facility] Heart rate 2022-05-20 02:13:00 105 /min [facility] Body temperature 2022-05-20 02:13:00 36.61 Mishel [facility] Respiratory rate 2022-05-20 02:13:00 16 /min [facility] [facility] Body height 2022-05-20 02:13:00 160 cm [facility] Body weight 2022-05-20 02:13:00 64.139 kg [facility] BMI 2022-05-20 02:13:00 25.05 kg/m2 [facility] Body mass index (BMI) [Percentile] Per age and sex 2022-05-20 02:13:00 81.11 % [facility] Oxygen saturation in Arterial blood by Pulse oximetry 2022-05-20 02:13:00 99 /min [facility] Systolic blood pressure 2021-10-30 20:23:00 135 mm[Hg] [facility] Diastolic blood pressure 2021-10-30 20:23:00 87 mm[Hg] [facility] Heart rate 2021-10-30 20:23:00 87 /min [facility] Body temperature 2021-10-30 20:23:00 37.06 Mishel [facility] Respiratory rate 2021-10-30 20:23:00 18 /min [facility] Body height 2021-10-30 20:23:00 162.6 cm [facility] Body weight 2021-10-30 20:23:00 60.328 kg [facility] BMI 2021-10-30 20:23:00 22.83 kg/m2 [facility] Body mass index (BMI) [Percentile] Per age and sex 2021-10-30 20:23:00 67.03 % [facility] Oxygen saturation in Arterial blood by Pulse oximetry 2021-10-30 20:23:00 98 /min [facility] Systolic blood pressure 2021-02-06 15:24:00 113 mm[Hg] [facility] Diastolic blood pressure 2021-02-06 15:24:00 74 mm[Hg] [facility] Heart rate 2021-02-06 15:24:00 93 /min [facility] Body temperature 2021-02-06 15:24:00 37 Mishel [facility] Respiratory rate 2021-02-06 15:24:00 16 /min [facility] Body height 2021-02-06 15:24:00 160 cm [facility] Body weight 2021-02-06 15:24:00 54.46 kg [facility] BMI 2021-02-06 15:24:00 21.27 kg/m2 [facility] Body mass index (BMI) [Percentile] Per age and sex 2021-02-06 15:24:00 53.15 % [facility] Procedures Procedure Date / Time Performed Performing Clinicia n Source [facility] PATIENT FINANCIAL POLICY 2022-09-25 20:20:50 Doctor Unassigned, [place] [facility] SCANNED LAB RESULTS 2022-08-14 06:01:00 Doctor Krystina fan, [place] [facility] URINE CULTURE 2022-06-30 20:55:00 Cindy Bourne [facility] GALV ONLY - VAGINAL PATHOGENS BY NUCLEIC ACID TESTING 2022-06-30 20:55:00 Cindy Bourne [facility] POCT URINALYSIS 2022-06-30 20:53:00 Tommy Bourne [facility] GC & CHLAMYDIA AMPLIFIED ASSAY 2021-02-06 15:11:00 Gregory Goodman [facility] Encounters Start Date/Time End Date/Time Encounter Type Admission Type Attending Clinicians Care Facility Care Department Encounter ID Source 2025-02-03 18:40:00 2025-02-03 18:40:00 Outpatient R [facility] [id number] [facility] 2023-03-29 00:00:00 2023-03-29 00:00:00 Case Management Kellen [facility] 1.2.840.114 350.1.13.10 4.2.7.2.[id number] [facility] 2023-03-26 00:00:00 2023-03-26 00:00:00 Telephone Kellen [facility] 1.2.840.114 350.1.13.10 4.2.7.2.[id number] [facility] 2023-03-25 09:00:00 2023-03-25 09:12:39 Outpatient R CINDY BOURNE [facility] [id number] [facility] 2023-03-25 09:00:00 2023-03-25 09:12:39 Office Visit Kellen [facility] 1.2.840.114 350.1.13.10 4.2.7.2.[id number] [facility] 2023-03-15 15:30:00 2023-03-15 15:30:00 Outpatient R CINDY BOURNE [facility] [id number] [facility] 2023-03-09 15:30:00 2023-03-09 15:30:00 Outpatient R CINDY BOURNE [facility] [id number] [facility] 2022-11-03 10:15:00 2022-11-03 10:30:00 Theatrical Agent Visit Lab, [facility] 1.840.114 350.1.13.10 4.2.7.2.[id number] [facility] 2022-11-03 10:00:00 2022-11-03 10:00:00 Outpatient R GREGORY GOODMAN [facility] [id number] [facility] 2022-11-03 09:30:00 2022-11-03 09:30:00 Office Visit Cindy Bourne [facility] 1.840.114 350.1.13.10 4.2.7.2.[id number] [facility] 2022-11-03 09:30:00 2022-11-03 09:21:53 Outpatient R CINDY BOURNE CHERYAL [facility] [id number] [facility] 2022-09-29 09:30:00 2022-09-29 09:30:00 Outpatient R CINDY BOUREN CHERYAL [facility] [id number] [facility] 2022-09-25 15:20:00 2022-09-25 15:40:00 Urgent Care Maggie Owens Unknown, Attending [facility] 1.840.114 350.1.13.10 4.2.7.2.[id number] [facility] 2022-09-25 15:20:00 2022-09-25 15:20:00 Outpatient R MAGGIE OWENS [facility] [id number] [facility] 2022-09-25 00:00:00 2022-09-25 00:00:00 Orders Only Doctor Unassigned, Colver [facility] 1.840.114 350.1.13.10 4.2.7.2.[id number] [facility] 2022-09-21 12:50:00 2022-09-21 12:50:00 Outpatient R CINTHIA CASTANEDA [facility] [id number] [facility] 2022-09-17 00:00:00 2022-09-17 00:00:00 Patient Secure Msg Doctor Unassigned, Colver [facility] 1.2.840.114 350.1.13.10 4.2.7.2.[id number] [facility] 2022-08-20 00:00:00 2022-08-20 00:00:00 Telephone Rita August [facility] 1.2.840.114 350.1.13.10 4.2.7.2.[id number] [facility] 2022-08-14 09:30:00 2022-08-14 09:30:00 Office Visit Cindy Bourne [facility] 1.2840.114 350.1.13.10 4.2.7.2.[id number] [facility] 2022-08-14 09:30:00 2022-08-14 09:29:05 Outpatient R CINDY BOURNE CHERYAL [facility] [id number] [facility] 2022-08-14 00:00:00 2022-08-14 00:00:00 Orders Only Doctor Unassigned, Colver [facility] 1.2840.114 350.1.13.10 4.2.7.2.[id number] [facility] 2022-07-01 00:00:00 2022-07-01 00:00:00 Case Management Kellen [facility] 1.2840.114 350.1.13.10 4.2.7.2.[id number] [facility] 2022-06-30 14:00:00 2022-06-30 14:53:10 Outpatient R CINDY BOURNE MARACINDY VARELA [facility] [id number] [facility] 2022-06-30 14:00:00 2022-06-30 14:53:10 Office Visit Cindy Bourne [facility] 1.114 350.1.13.10 4.2.7.2.[id number] [facility] 2022-05-19 20:00:00 2022-05-19 20:15:56 Outpatient R PAULA VARGAS [facility] [id number] [facility] 2022-05-19 20:00:00 2022-05-19 20:15:56 Urgent Care Paula [facility]as Unknown, [facility] 1.84.114 350.1.13.10 4.2.7.2.[id number] [facility] 2021-12-16 07:30:00 2021-12-16 07:30:00 Outpatient R CINTHIA CASTANEDA [facility] [id number] [facility] 2021-11-21 00:00:00 2021-11-21 00:00:00 Refill Doctor Unassigned, Colver [facility] 1.114 350.1.13.10 4.2.7.2.[id number] [facility] 2021-10-30 15:00:00 2021-10-30 15:59:08 Office Visit Gregory Goodman [facility] 1.114 350.1.13.10 4.2.7.2.[id number] [facility] 2021-10-30 15:00:00 2021-10-30 15:59:08 Outpatient R GREGORY GOODMAN [facility] [id number] [facility] 2021-10-30 15:00:00 2021-10-30 15:00:00 Outpatient GREGORY BHATIA [facility] [id number] [facility] 2021-10-30 00:00:00 2021-10-30 00:00:00 Orders Only Doctor Unassigned, Colver [facility] 1.840.114 350.1.13.10 4.2.7.2.[id number] [facility] 2021-10-24 12:30:00 2021-10-24 12:30:00 Outpatient R CINTHIA CASTANEDA [facility] [id number] [facility] 2021-10-03 14:50:00 2021-10-03 15:37:15 Outpatient CINTHIA ENGLAND [facility] [id number] [facility] 2021-10-03 14:50:00 2021-10-03 15:37:15 Office Visit Cinthia Castaneda [facility] 1.840.114 350.1.13.10 4.2.7.2.[id number] [facility] 2021-10-03 14:50:00 2021-10-03 15:37:15 Outpatient R CINTHIA CASTNAEDA [facility] [id number] [facility] 2021-07-05 11:00:00 2021-07-05 11:00:00 Outpatient R [facility] [id number] [facility] 2021-06-29 14:30:00 2021-06-29 14:45:00 Laboratory Only Only, Ang Anton Phillips Marguerite [facility] 1..840.114 350.1.13.10 4.2.7.2.[id number] [facility] 2021-06-29 14:30:00 2021-06-29 14:30:00 Outpatient Gopal PHILLIPSMARGUERITE [facility] [id number] [facility] 2021-06-18 11:20:00 2021-06-18 11:20:00 Urgent Care Sonal Tang [facility] 1.2.840.114 350.1.13.10 4.2.7.2.[id number] [facility] 2021-06-18 11:20:00 2021-06-18 10:59:46 Outpatient Gopal LIUDMILA TANGTANY [facility] [id number] [facility] 2021-04-25 14:04:37 2021-04-25 14:23:40 Office Visit Cinthia Castaneda [facility] 1..840.114 350.1.13.10 4.2.7.2.[id number] [facility] 2021-04-25 14:10:00 2021-04-25 14:10:00 Outpatient CINTHIA ENGLAND [facility] [id number] [facility] 2021-04-16 15:50:00 2021-04-16 15:50:00 Outpatient CINTHIA ENGLAND [facility] [id number] [facility] 2021-04-16 00:00:00 2021-04-16 00:00:00 Patient Secure Msg Cinthia Castaneda [facility] 1.2.840.114 350.1.13.10 4.2.7.2.[id number] [facility] 2021-03-31 15:00:00 2021-03-31 15:00:00 Outpatient GREGORY BHATIA [facility] [id number] [facility] 2021-03-31 00:00:00 2021-03-31 00:00:00 Letter (Out) Arlene, Madeleine [facility] 1.2.84.114 350.1.13.10 4.2.7.2.[id number] [facility] 2021-03-30 13:18:19 2021-03-30 13:33:19 Laboratory Only Only, Ang Db Test [facility] 1.84.114 350.1.13.10 4.2.7.2.[id number] [facility] 2021-03-30 13:30:00 2021-03-30 13:30:00 Outpatient R TYLER ASHLEY [facility] [id number] [facility] 2021-03-24 16:46:31 2021-03-24 17:01:31 Laboratory Only Only, Ang Db Test [facility] 1.84.114 350.1.13.10 4.2.7.2.[id number] [facility] 2021-03-24 17:00:00 2021-03-24 17:00:00 Outpatient R [facility] [id number] [facility] 2021-03-07 12:01:29 2021-03-07 12:06:43 Laboratory Only Only, Ang Db Test [facility] 1.84.114 350.1.13.10 4.2.7.2.[id number] [facility] 2021-03-07 11:45:00 2021-03-07 11:45:00 Outpatient R [facility] [id number] [facility] 2021-02-28 15:43:01 2021-02-28 16:17:55 Office Visit Cinthia Castaneda [facility] 1..114 350.1.13.10 4.2.7.2.[id number] [facility] 2021-02-28 15:43:01 2021-02-28 16:17:55 Office Visit Cinthia Castaneda [facility] 1..114 350.1.13.10 4.2.7.2.[id number] [facility] 2021-02-28 15:50:00 2021-02-28 15:50:00 Outpatient R CINTHIA CASTANEDA [facility] [id number] [facility] 2021-02-06 10:30:00 2021-02-06 11:00:00 Office Visit Rex Gregory [facility] 1.114 350.1.13.10 4.2.7.2.[id number] [facility] 2021-02-06 10:30:00 2021-02-06 10:30:00 Outpatient R GREGORY GOODMAN [facility] [id number] [facility] 2021-02-06 10:30:00 2021-02-06 10:30:00 Outpatient R GREGORY GOODMAN [facility] [id number] [facility] 2021-02-06 10:25:44 2021-02-06 10:26:07 Nurse Visit Nurse, L[facility][1] 1.114 350.1.13.10 4.2.7.2.[id number] [facility] 2021-02-06 10:00:00 2021-02-06 10:00:00 Outpatient R [facility] [id number] [facility] 2021-01-27 10:45:00 2021-01-27 11:22:10 Office Visit Cinthia Castaneda [facility] 1.114 350.1.13.10 4.2.7.2.[id number] [facility] 2021-01-27 10:50:00 2021-01-27 10:50:00 Outpatient R CINTHIA CASTANEDA [facility] [id number] [facility] 2021-01-15 15:30:00 2021-01-15 15:30:00 Outpatient R [facility] [id number] [facility] 2021-01-07 00:00:00 2021-01-07 00:00:00 Telephone Cinthia Castaneda [facility] 1.2.840.114 350.1.13.10 4.2.7.2.[id number] [facility] 2021-01-06 09:59:06 2021-01-06 10:14:49 Theatrical Agent Visit Nurse, Lisa Burton [facility] 1.2.840.114 350.1.13.10 4.2.7.2.[id number] [facility] 2021-01-06 10:00:00 2021-01-06 10:00:00 Outpatient R [facility] [id number] [facility] 2020-12-18 08:45:03 2020-12-18 09:19:07 Office Visit Cinthia Castaneda [facility] 1.2.840.114 350.1.13.10 4.2.7.2.[id number] [facility] 2020-12-18 08:50:00 2020-12-18 08:50:00 Outpatient R CINTHIA CASTANEDA [facility] [id number] [facility] 2020-12-13 16:00:00 2020-12-13 16:00:00 Outpatient GREGORY BHATIA [facility] [id number] [facility] 2020-12-12 00:00:00 2020-12-12 00:00:00 Telephone Gregory Goodman [facility] 1.2840.114 350.1.13.10 4.2.7.2.[id number] [facility] 2020-12-10 15:05:57 2020-12-10 15:20:57 Theatrical Agent Visit [place], Ad[facility] Lab Main Gregory Goodman [facility] 1.2840.114 350.1.13.10 4.2.7.2.[id number] [facility] 2020-12-10 14:00:00 2020-12-10 14:00:00 Outpatient R GREGORY GOODMAN [facility] [id number] [facility] 2020-12-10 00:00:00 2020-12-10 00:00:00 Orders Only Doctor Unassigned, Colver [facility] 1.2840.114 350.1.13.10 4.2.7.2.[id number] [facility] 2020-12-06 08:48:40 2020-12-06 09:00:58 Theatrical Agent Visit Terry Spencer Lee [facility] 1.20.114 350.1.13.10 4.2.7.2.[id number] [facility] 2020-12-06 09:00:00 2020-12-06 09:00:00 Outpatient R [facility] [id number] [facility] 2020-12-04 15:30:31 2020-12-04 16:52:10 Office Visit Cinthia Castaneda [facility] 1.20.114 350.1.13.10 4.2.7.2.[id number] [facility] 2020-12-04 15:50:00 2020-12-04 15:50:00 Outpatient R MAGED , CINTHIA [facility] [id number] [facility] 2020-11-17 16:05:40 2020-11-17 16:25:40 Urgent Care Provider, Roberto [facility] 1.840.114 350.1.13.10 4.2.7.2.[id number] [facility] 2020-11-17 16:20:00 2020-11-17 16:20:00 Outpatient R [facility] [id number] [facility] 2020-10-25 13:19:47 2020-10-25 13:39:47 Laboratory Only Lab, Adc Fam Pob Tracy Meadoswthia [facility] 1.840.114 350.1.13.10 4.2.7.2.[id number] [facility] 2020-10-25 13:20:00 2020-10-25 13:20:00 Outpatient R ERIKA SEAY [facility] [id number] [facility] 2020-10-25 13:20:00 2020-10-25 13:20:00 Outpatient R [facility] [id number] [facility] 2020-07-08 08:40:00 2020-07-08 08:40:00 Outpatient R ANETA PEREZ [facility] [id number] [facility] 2020-07-03 16:20:00 2020-07-03 16:20:00 Outpatient R ENIO ROPER [facility] [id number] [facility] 2020-04-16 09:10:00 2020-04-16 09:10:00 Outpatient CINTHIA ENGLAND [facility] [id number] [facility] 2020-04-02 09:35:50 2020-04-02 10:23:08 Office Visit Cinthia Castaneda [facility] 1.2.840.114 350.1.13.10 4.2.7.2.[id number] [facility] 2020-04-02 10:10:00 2020-04-02 10:10:00 Outpatient R CINTHIA CASTANEDA [facility] [id number] [facility] 2020-04-02 00:00:00 2020-04-02 00:00:00 Letter (Out) Cinthia Castaneda [facility] 1..114 350.1.13.10 4.2.7.2.[id number] [facility] 2020-03-14 00:00:00 2020-03-14 00:00:00 Telephone Gregory Goodman [facility] 1..114 350.1.13.10 4.2.7.2.[id number] [facility] 2020-03-13 08:30:00 2020-03-13 08:30:00 Outpatient R REX GREGORY [facility] [id number] [facility] 2020-02-16 08:37:33 2020-02-16 09:21:02 Office Visit Cinthia Castaneda [facility] 1.114 350.1.13.10 4.2.7.2.[id number] [facility] 2020-02-16 09:00:00 2020-02-16 09:00:00 Outpatient R CINTHIA CASTANEDA [facility] [id number] [facility] 2019-08-30 13:39:15 2019-08-30 13:59:15 Office Visit Cinthia Castaneda [facility] 1.114 350.1.13.10 4.2.7.2.[id number] [facility] 2019-08-30 13:50:00 2019-08-30 13:50:00 Outpatient R CINTHIA CASTANEDA [facility] [id number] [facility] 2019-08-30 00:00:00 2019-08-30 00:00:00 Letter (Out) Cinthia Castaneda [facility] 1.2.840.114 350.1.13.10 4.2.7.2.[id number] [facility] 2019-08-16 13:56:38 2019-08-16 14:32:43 Office Visit Cinthia Castaneda [facility] 1.2.840.114 350.1.13.10 4.2.7.2.[id number] [facility] 2019-08-16 00:00:00 2019-08-16 00:00:00 Letter (Out) Cinthia Castaneda [facility] 1.2.840.114 350.1.13.10 4.2.7.2.[id number] [facility] 2019-07-27 00:00:00 2019-07-27 00:00:00 Telephone Aneta Perez [facility] 1.2.840.114 350.1.13.10 4.2.7.2.[id number] [facility] 2019-07-25 14:51:52 2019-07-25 15:31:37 Office Visit Aneta Perez [facility] 1.2.840.114 350.1.13.10 4.2.7.2.[id number] [facility] 2019-07-25 00:00:00 2019-07-25 00:00:00 Letter (Out) Aneta Perez [facility] 1.2.840.114 350.1.13.10 4.2.7.2.686 [id number] [facility] Results Test Description Test Time Test Comments Results Result Co mments Source [facility]CIFIC [id number] 20:54:00* Test Item Value Reference Range Interpretation Comme nts POCT U SP GRAV (test code = 3255) N/A 1.005-1.025 POCT PH U (test code = 3254) 7 mg/dl 5-8 POCT U LEUK EST (test code = 3263) Positive Negative - Negative POCT U NIT (test code = 3262) Negative Negative - Negati ve POCT U PROT (test code = 3259) Negative Negative - Negat joselo POCT U GLU (test code = 3256) Negative Negative - Negati ve POCT U KETONE (test code = 3258) Negative Negative - Neg ative POCT U UROBILI (test code = 3260) Negative 0.2-1 POCT U BILI (test code = 3261) Negative Negative - Negat joselo POCT U BLD (test code = 3257) Negative Negative - Negati ve POCT U COLOR (test code = 3266) yellow POCT U APPEAR (test code = 3267) clear [facility]
[2025-04-06] MEDS ORDERED: DIPHENHYDRAMINE 50 MG/ML VIAL ONE (08:21)
[2025-04-06] MEDS ORDERED: NA CHLORIDE 0.9% 1,000 ML ONE (08:21)
[2025-04-06 08:55] LABS: Absolute Lymphocytes (CBC) 0.9 K/uL (0.7-4.9); Hematocrit 36.2 % (36.0-45.0); Hemoglobin 12.5 g/dL (12.0-15.0); MCH 28.9 pg (27.0-35.0); MCHC 34.7 g/dL (32.0-36.0); MCV 83.3 fL (80-100); MPV 7.1 fL (7.6-11.3); Nucleated RBC Absolute Count 0.0 (0-0); Nucleated Red Blood Cells % 0.0 % (0-0); RBC Red Blood Cell Count 4.34 M/uL (3.86-4.86); White Blood Count 5.20 thou/uL (4.3-10.9)
[2025-04-06 09:28] LABS: Anion Gap 9.3 mEq/L (5.0-15.0); BUN Blood Urea Nitrogen 12.0 mg/dL (7-18); Glucose Level 82.0 mg/dL (74-106); HCG, Quantitative 16179.0 mIU/mL (1-3); Potassium 3.3 mEq/L (3.5-5.1)
[2025-04-06 09:56] LABS: Urine Culture Reflex Order NOT NEEDED; Urine Microscopic Reflex YN ORDER UMIC; Urine Yeast (Budding) Trace /HPF (None Seen)
--- NOTE | 2025-04-06 09:59 | ER ---
Nurse's Notes [facility] Name: Gail Tubbs Age: 19 yrs Sex: Female : 2005 Arrival Date: 04/06/2025 Time: 08:06 Bed 5 Private MD: Diagnosis: Nausea with vomiting, unspecified Presentation: 04/06 08:18 Chief complaint: Patient states: she has been having nausea and vomiting since ap3 yesterday, along with a headache and abdominal cramping. patient reports recent positive tests with LMP 03/03/2025. patient denies any vaginal bleeding. Coronavirus screen: At this time, the client does not indicate any symptoms associated with coronavirus-19. Ebola Screen: No symptoms or risks identified at this time. Initial Sepsis Screen: Does the patient meet any 2 criteria? HR > 90 bpm. Does the patient have a suspected source of infection? No. Patient's initial sepsis screen is negative. Risk Assessment: Do you want to hurt yourself or someone else? Patient reports no desire to harm self or others. Onset of symptoms was April 05, 2025. 08:18 Method Of Arrival: Ambulatory ap3 08:18 Acuity: JACQUELYN 3 ap3 Triage Assessment: 08:20 General: Appears in no apparent distress. Behavior is calm, cooperative, appropriate ap3 for age. Pain: Complains of pain in abdomen Quality of pain is described as crampy. Neuro: Level of Consciousness is awake, alert, obeys commands, Oriented to person, place, time, situation. Cardiovascular: Patient's skin is warm and dry. Respiratory: Airway is patent Respiratory effort is even, unlabored, Respiratory pattern is regular, symmetrical. GI: Reports nausea, vomiting, since 04/05/25. 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 - Infectious Disease History:: Denies. - Social history:: Smoking status: Patient denies any tobacco usage or history of. Screenin:21 Abuse screen: Denies threats or abuse. Nutritional screening: No deficits noted. ap3 Tuberculosis screening: No symptoms or risk factors identified. 08:49 [facility] ED Fall Risk Assessment (Adult) History of falling in the last 3 months, jl7 including since admission No falls in past 3 months (0 pts) Confusion or Disorientation No (0 pts) Intoxicated or Sedated No (0 pts) Impaired Gait No (0 pts) Mobility Assist Device Used No (0 pt) Altered Elimination No (0 pt) Score/Fall Risk Level 0 - 2 = Low Risk Oriented to surroundings, Maintained a safe environment. Assessment: 08:49 General: Appears in no apparent distress. uncomfortable, Behavior is calm, cooperative, jl7 appropriate for age. Pain: Denies pain. Neuro: Peter Agitation-Sedation Scale (RASS): 0 - Alert and Calm Level of Consciousness is awake, alert, obeys commands, Oriented to person, place, time, situation, Gait is steady. Cardiovascular: Patient's skin is warm and dry. Respiratory: Airway is patent Respiratory effort is even, unlabored, Respiratory pattern is regular, symmetrical. GI: Abdomen is flat, non-distended, Reports nausea, vomiting, Patient currently denies diarrhea, pain. : No signs and/or symptoms were reported regarding the genitourinary system. Urine is cloudy. Derm: Skin is pink, warm \T\ dry. Vital Signs: 08:18 BP 119 / 60; Pulse 107; Resp 18; Temp 98.9; Pulse Ox 99% on R/A; Weight 58.97 kg; ap3 Height 5 ft. 3 in. ; 10:00 BP 116 / 71; Pulse 81; Resp 16; Pulse Ox 98% on R/A; Pain 0/10; ar8 08:18 Body Mass Index 23.03 (58.97 kg, 160.02 cm) ap3 10:00 Pain Scale: Adult ar8 ED Course: 08:09 Patient arrived in ED. cj3 08:10 Ted Greenfield [facility]C [facility]. dr5 08:10 Shahnaz Dinero MD is Attending Physician. dr5 08:20 Triage completed. ap3 08:21 Arm band placed on right wrist. ap3 08:21 Patient has correct armband on for positive identification. Bed in low position. Call ap3 light in reach. Adult w/ patient. Provided Education on: call light education. Pulse ox on. NIBP on. 08:49 Essie Denson, RN is Primary Nurse. jl7 08:49 Initial lab(s) drawn, by me, sent to lab. Urine collected: clean catch specimen, jl7 cloudy. Inserted saline lock: 20 gauge in right antecubital area, using aseptic technique. Blood collected. Flushed with 10 mL NS. :44 Urine collected: clean catch specimen, cloudy, sent for UA. ap3 09:44 UA Rfx Ramu Cult if indicated Sent. ap3 10:00 No provider procedures requiring assistance completed. ar8 10:10 IV discontinued, intact, bleeding controlled, No redness/swelling at site. Pressure ar8 dressing applied. Administered Medications: 08:51 Drug: NS 0.9% IV 1000 ml IV at 1000 ml once; to be given as a bolus over 60 minutes jl7 Route: IV; Rate: 1000 ml; Site: right antecubital; 10:00 Follow up: Response: Nausea is decreased; IV Status: Completed infusion; IV Intake: ar8 1000ml 08:51 Drug: diphenhydrAMINE IVP 12.5 mg IVP once Route: IVP; Site: right antecubital; jl7 10:00 Follow up: Response: No adverse reaction; Anxiety decreased ar8 Medication: 08:49 VIS not applicable for this client. jl7 Intake: 10:00 IV: 1000ml; Total: 1000ml. ar8 Outcome: 09:59 Discharge ordered by . dr5 10:12 Discharged to home ambulatory, ar8 10:12 Condition: stable 10:12 Discharge instructions given to patient, significant other, Instructed on discharge instructions, follow up and referral plans. Demonstrated understanding of instructions, follow-up care, 10:13 Patient left the ED. ar8 Signatures: Essie Denson, RN RN jl7 Zina Russell RN RN ap3 Ted Greenfield, COURT MESSENGER-C COURT MESSENGER-Cdr5 Sari Alcala 3 Theo Chavez, CHARLI RN ar8
--- NOTE | 2025-04-06 09:59 | EDPHYS ---
Physician Documentation [facility] Name: Gail Tubbs Age: 19 yrs Sex: Female : 2005 Arrival Date: 04/06/2025 Time: 08:06 Bed 5 Private MD: ED Physician Shahnaz Dinero HPI: 04/06 08:36 This 19 yrs old Female presents to ER via Ambulatory with complaints of dr5 Nausea/Vomiting. 08:36 The patient presents to the emergency department with nausea, vomiting. Onset: The dr5 symptoms/episode began/occurred yesterday. Patient is a 19-year-old female with no past medical history coming in with nausea and vomiting that started yesterday. Patient reports taking positive test approximately 5 times and has confirmation on April 10, 2025. Patient denies vaginal bleeding or vaginal discharge, dysuria , abdominal pain, chest pain, shortness of breath.. 10:22 Patient is G1, . 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 - Infectious Disease History:: Denies. - Social history:: Smoking status: Patient denies any tobacco usage or history of. ROS: 08:36 Constitutional: as per hpi dr5 Exam: 08:36 Constitutional: This is a well developed, well nourished patient who is awake, alert, dr5 and in no acute distress. Head/Face: Normocephalic, atraumatic. Eyes: Pupils equal round and reactive to light, extra-ocular motions intact. Lids and lashes normal. Conjunctiva and sclera are non-icteric and not injected. Cornea within normal limits. Periorbital areas with no swelling, redness, or edema. ENT: Nares patent. No nasal discharge, no septal abnormalities noted. Tympanic membranes are normal and external auditory canals are clear. Oropharynx with no redness, swelling, or masses, exudates, or evidence of obstruction, uvula midline. Mucous membranes moist. Chest/axilla: Normal chest wall appearance and motion. Nontender with no deformity. No lesions are appreciated. Cardiovascular: Regular rate and rhythm with a normal S1 and S2. Normal PMI, no JVD. No pulse deficits. Respiratory: Lungs have equal breath sounds bilaterally, clear to auscultation. No rales, rhonchi or wheezes noted. No increased work of breathing, no retractions or nasal flaring. Abdomen/GI: Soft, non-tender, non-distended Back: No spinal tenderness. No costovertebral tenderness. Full range of motion. Skin: Warm, dry with normal turgor. Normal color with no rashes, no lesions, and no evidence of cellulitis. MS/ Extremity: Pulses equal, no cyanosis. Neurovascular intact. Full, normal range of motion. Neuro: Awake and alert, GCS 15, oriented to person, place, time, and situation. Cranial nerves II-XII grossly intact. Motor strength 5/5 in all extremities. Sensory grossly intact. Cerebellar exam normal. Normal gait. Vital Signs: 08:18 BP 119 / 60; Pulse 107; Resp 18; Temp 98.9; Pulse Ox 99% on R/A; Weight 58.97 kg; ap3 Height 5 ft. 3 in. ; 10:00 BP 116 / 71; Pulse 81; Resp 16; Pulse Ox 98% on R/A; Pain 0/10; ar8 08:18 Body Mass Index 23.03 (58.97 kg, 160.02 cm) ap3 10:00 Pain Scale: Adult ar8 MDM: 08:12 Medical Screening Exam initiated dr5 10:19 Differential diagnosis: Nonspecific abd pain, , urinary tract infection, dr5 anemia, hyperemesis gravidarum. Data reviewed: vital signs, nurses notes, lab test result(s), Beta HCG: CBC, white blood cell count, hemoglobin, hematocrit, platelets, electrolytes, sodium, potassium, chloride, serum bicarbonate, BUN, creatinine, serum glucose, Type and screen. Consideration of Admission/Observation Escalation of care including admission/observation considered. Escalation considered patient found to have acute dehydration and not p.o. tolerant. I considered the following discharge prescriptions or medication management in the emergency department I discussed and recommended Over The Counter medications, Medications were administered in the Emergency Department. See MAR. Test considered but Not performed: Ultrasound Ultrasound considered but patient not having vaginal bleeding and likely too early to see gestational sac or heartbeat. Historians other than the Patient: Spouse/Significant Other: Significant other at bedside. Care significantly affected by the following Social Determinants of Health: Poor access to healthcare and/or lack of insurance, Poor access to transportation, Problems related to employment. Counseling: I had a detailed discussion with the patient and/or guardian regarding the historical points, exam findings, and any diagnostic results supporting the discharge/admit diagnosis, the presence of at least one elevated blood pressure reading (>120/80) during this emergency department visit, lab results, the need for outpatient follow up, for definitive care, an OB/Gyne specialist, to return to the emergency department if symptoms worsen or persist or if there are any questions or concerns that arise at home. Medication response: Normal saline, Benadryl. Response to treatment: the patient's symptoms have resolved after treatment, the patient is now symptom free, the patient developed rash. Special discussion: I discussed with the patient/guardian in detail that at this point there is no indication for admission to the hospital. It is understood, however, that if the symptoms persist or worsen the patient needs to return immediately for re-evaluation. Based on the history and exam findings, there is no indication for further emergent testing or inpatient evaluation. I discussed with the patient/guardian the need to see the OB Gyne specialist for further evaluation of the symptoms. ED course: Patient passed p.o. challenge. Patient denies any symptoms at time of discharge. Patient states she has an OB appointment in 4 days for confirmation of . Printed all labs and given to her to follow-up with. All questions answered. Strict ER precautions given.. 04/06 08:18 Order name: Abo/rh Typing; Complete Time: : dr5 04/06 08:18 Order name: Basic Metabolic Panel; Complete Time: :32 dr5 04/06 08:18 Order name: CBC with Diff; Complete Time: : dr5 04/06 08:18 Order name: Test, Urine; Complete Time: : dr5 04/06 08:18 Order name: Quantitative Hcg; Complete Time: : dr5 04/06 09:34 Order name: UA Rfx Ramu Cult if indicated; Complete Time: :58 04/06 08:18 Order name: IV Saline Lock; Complete Time: 08:53 dr5 04/06 08:18 Order name: Labs collected and sent; Complete Time: 08:53 dr5 04/06 08:18 Order name: NPO; Complete Time: 08:53 dr5 Administered Medications: 08:51 Drug: NS 0.9% IV 1000 ml IV at 1000 ml once; to be given as a bolus over 60 minutes jl7 Route: IV; Rate: 1000 ml; Site: right antecubital; 10:00 Follow up: Response: Nausea is decreased; IV Status: Completed infusion; IV Intake: ar8 1000ml 08:51 Drug: diphenhydrAMINE IVP 12.5 mg IVP once Route: IVP; Site: right antecubital; jl7 10:00 Follow up: Response: No adverse reaction; Anxiety decreased ar8 Disposition Summary: 04/06/25 09:59 Discharge Ordered Notes: Location: Home dr5 Condition: Stable dr5 Diagnosis - Nausea with vomiting, unspecified dr5 Followup: dr5 - With: Emergency Department - When: As needed - Reason: Worsening of condition Followup: dr5 - With: Private Physician - When: 1 - 2 days - Reason: Recheck today's complaints, Continuance of care, Re-evaluation by your physician Discharge Instructions: - Discharge Summary Sheet dr5 - Nausea and Vomiting, Adult dr5 - First Trimester of dr5 Forms: - Medication Reconciliation Form dr5 - Patient Portal Instructions dr5 - Leadership Thank You Letter dr5 - Work release form ar8 Signatures: Dispatcher [employer] Essie Santos RN RN jl7 Zina Russell RN RN ap3 Ted Greenfield, FASTENER TECHNOLOGIST-C FASTENER TECHNOLOGIST-Cdr5 Theo Chavez RN ar8 Corrections: (The following items were deleted from the chart) 08:18 08:18 ABO/RH TYPING+BB.LAB.BRZ ordered. EDMS EDMS 08:18 08:18 BASIC METABOLIC PANEL+C.LAB.BRZ ordered. EDMS EDMS 08:18 08:18 CBC+H.LAB.BRZ ordered. EDMS EDMS 08:18 08:18 Test, Urine+UC.LAB.BRZ ordered. EDMS EDMS 08:18 08:18 QUANTITATIVE HCG+C.LAB.BRZ ordered. EDMS EDMS 09:35 09:35 UA Rfx Ramu Cult if indicated+U.LAB.BRZ ordered. EDMS EDMS
[2025-04-06 10:19] VITALS: TEMP 98.9
[2025-04-06 10:20] VITALS: BP 116/71; O2SAT 98
== END 2025-04-06 10:13 | disposition home or self-care (01) ==
LOC: ER 08:06
DX: R11.2 Nausea with vomiting, unspecified (principal)
CPT/HCPCS: 36415; 80048; 81001; 81025; 84702; 85025; 86900; 86901; 96361; 96374; 99284; J1200; J7030